=== PATIENT | female | born 1950 | race Caucasian/White ===

== ENCOUNTER 2023-11-07 23:40 | Observation (INO) | payer MEDICARE, OTHER ==
[2023-11-08 00:10] LABS: INR 1.1 (0.9-1.1)
[2023-11-08 00:14] LABS: BASOPHILS ABSOLUTE AUTO 0.03 K/uL (0.00-0.20); BASOPHILS PERCENT AUTO 0.4 % (0.0-2.0); EOSINOPHILS ABSOLUTE AUTO 0.21 K/uL (0.00-0.50); EOSINOPHILS PERCENT AUTO 2.6 % (0.0-5.0); HEMATOCRIT 35.6 % (34.0-46.0); HEMOGLOBIN 12.2 g/dL (11.7-15.5); LYMPHOCYTES ABSOLUTE AUTO 1.75 K/uL (0.50-3.50); MEAN CORPUSCULAR HGB CONC 34.3 g/dL (31.7-36.0); MEAN CORPUSCULAR VOLUME 90.4 fL (84.0-98.0); MONOCYTES ABSOLUTE AUTO 0.64 K/uL (0.00-1.00); MONOCYTES PERCENT AUTO 8.1 % (2.0-14.0); NEUTROPHILS ABSOLUTE AUTO 5.31 K/uL (1.40-7.00); NEUTROPHILS PERCENT AUTO 66.9 % (45.0-80.0); PLATELET COUNT,PLT 308 K/uL (150-350); RED BLOOD CELL COUNT 3.94 M/uL (3.77-5.09); RED CELL DISTRIBUTION WIDTH 12.5 % (11.2-14.1); WHITE BLOOD CELL COUNT,WBC 7.9 K/uL (4.0-10.2)
[2023-11-08 00:21] LABS: ALANINE AMINOTRANSFERASE,ALT 27 U/L (12-78); ALBUMIN 3.8 g/dL (3.4-5.0); ALKALINE PHOSPHATASE 67 IU/L (46-116); ANION GAP 13.1 meq/L (7-15); ASPARTATE AMNIOTRANSFERASE,AST 21 U/L (15-37); BILIRUBIN TOTAL 0.3 mg/dL (0.2-1.0); BLOOD UREA NITROGEN,BUN 14 mg/dL (7-18); CARBON DIOXIDE,CO2 24.9 mmol/L (21.0-32.0); CHLORIDE,CL 105 mmol/L (98-107); GLUCOSE RANDOM 114 mg/dL (70-99); POTASSIUM,K 3.9 mmol/L (3.5-5.1); PRO B-TYPE NATRIUR PEPT,BNPPRO 511 pg/mL (0-125); PROTEIN TOTAL,TP 7.6 g/dL (6.4-8.2); SODIUM,NA 143 mmol/L (136-145)
[2023-11-08 00:26] LABS: ESTIMATED GFR 39 mL/min (>=60)
[2023-11-08] MEDS ORDERED: Ondansetron 4 MG Tab.DIS PO PRN (01:11)
[2023-11-08] MEDS ORDERED: Take Home: Albuterol 6.7 GM Inhaler, 1 Inhaler Pack INH PRN (01:19)
[2023-11-08] MEDS: LORazepam 2 MG/ML SDV IV PRN (01:28)
[2023-11-08] MEDS: Sodium Chloride 0.9% 10 ML Syringe FLUSH PRN ×2 (01:29→09:11)
[2023-11-08] MEDS: Prochlorperazine 10 MG/2 ML SDV IV ONE (01:30)
[2023-11-08] MEDS: Furosemide 40 MG/4 ML VIAL IVPUSH ONE ×3 (02:03→16:52)
[2023-11-08] MEDS ORDERED: Albuterol 6.7 GM Inhaler INH PRN (02:36)
[2023-11-08 06:57] LABS: BASOPHILS ABSOLUTE AUTO 0.03 K/uL (0.00-0.20); BASOPHILS PERCENT AUTO 0.5 % (0.0-2.0); EOSINOPHILS ABSOLUTE AUTO 0.07 K/uL (0.00-0.50); EOSINOPHILS PERCENT AUTO 1.1 % (0.0-5.0); HEMOGLOBIN 11.4 g/dL (11.7-15.5); LYMPHOCYTES ABSOLUTE AUTO 1.92 K/uL (0.50-3.50); LYMPHOCYTES PERCENT AUTO 29.3 % (10.0-50.0); MEAN CORPUSCULAR HEMOGLOBIN 30.6 pg (28.2-33.3); MEAN CORPUSCULAR HGB CONC 33.5 g/dL (31.7-36.0); MEAN CORPUSCULAR VOLUME 91.2 fL (84.0-98.0); MONOCYTES ABSOLUTE AUTO 0.63 K/uL (0.00-1.00); MONOCYTES PERCENT AUTO 9.6 % (2.0-14.0); NEUTROPHILS ABSOLUTE AUTO 3.91 K/uL (1.40-7.00); NEUTROPHILS PERCENT AUTO 59.5 % (45.0-80.0); PLATELET COUNT,PLT 262 K/uL (150-350); RED BLOOD CELL COUNT 3.73 M/uL (3.77-5.09); RED CELL DISTRIBUTION WIDTH 12.5 % (11.2-14.1); WHITE BLOOD CELL COUNT,WBC 6.6 K/uL (4.0-10.2)
[2023-11-08 07:56] LABS: ANION GAP 9.5 meq/L (7-15); CALCIUM 9.6 mg/dL (8.5-10.1); CARBON DIOXIDE,CO2 27.5 mmol/L (21.0-32.0); CREATININE 1.12 mg/dL (0.51-1.17); EST CRCL DRUG DOSING (CG) 34.85 mL/min; POTASSIUM,K 4.3 mmol/L (3.5-5.1)
[2023-11-08] MEDS ORDERED: Non-Formulary Medication 1 Each (Diphenhydramine [Benadryl] 25 MG Tablet) PO SCH (08:00)
[2023-11-08] MEDS ORDERED: [UNRECOGNIZED DRUG - REMARK] PO SCH ×2 (08:00)
[2023-11-08] MEDS ORDERED: Non-Formulary Medication 1 Each (Levothyroxine Sodium [Synthroid] 125 MCG Tablet) PO SCH (08:00)
[2023-11-08] MEDS: Metoprolol Succinate 50 MG Tab.ER PO SCH (09:08)
[2023-11-08] MEDS: Vitamin B Complex Tab PO SCH (09:08)
[2023-11-08] MEDS: Citalopram 20 MG Tab PO SCH (09:08)
[2023-11-08] MEDS: amLODIPine 5 MG Tab PO SCH (09:09)
[2023-11-08] MEDS: Levothyroxine 25 MCG Tab PO SCH (09:09)
[2023-11-08] MEDS: diphenhydrAMINE 25 MG Cap PO SCH (09:10)
[2023-11-08] MEDS: Albuterol/Ipratropium 3.0-0.5 MG/3 ML Neb Soln NEB ONE (09:26)
[2023-11-08] MEDS: Levothyroxine 100 MCG Tab PO SCH (09:34)
[2023-11-08] MEDS: Prochlorperazine 10 MG/2 ML SDV IVPUSH ONE (10:03)
[2023-11-08] MEDS: Rivaroxaban 10 MG Tab PO SCH (12:24)
[2023-11-08] MEDS: Albuterol/Ipratropium 3.0-0.5 MG/3 ML Neb Soln ONE (12:25)
[2023-11-08] MEDS: Formoterol/Mometasone 200-5 MCG 8.8 GM Inhaler INH SCH (12:26)
[2023-11-08] MEDS ORDERED: Albuterol 0.083% 2.5 MG/3 ML Neb Soln INH PRN (16:30)
[2023-11-08 17:43] LABS: CREATININE 1.11 mg/dL (0.51-1.17); EST CRCL DRUG DOSING (CG) 35.17 mL/min
[2023-11-08] MEDS: Arformoterol 15 MCG/2 ML Neb Soln INH SCH (20:00)
[2023-11-08] MEDS: Budesonide 0.25 MG/2 ML Neb Susp INH SCH (20:00)
[2023-11-09 07:36] LABS: BASOPHILS ABSOLUTE AUTO 0.02 K/uL (0.00-0.20); BASOPHILS PERCENT AUTO 0.4 % (0.0-2.0); EOSINOPHILS PERCENT AUTO 5.8 % (0.0-5.0); HEMATOCRIT 35.6 % (34.0-46.0); HEMOGLOBIN 11.8 g/dL (11.7-15.5); LYMPHOCYTES PERCENT AUTO 32.9 % (10.0-50.0); MEAN CORPUSCULAR HEMOGLOBIN 30.6 pg (28.2-33.3); MEAN CORPUSCULAR HGB CONC 33.1 g/dL (31.7-36.0); MEAN CORPUSCULAR VOLUME 92.5 fL (84.0-98.0); MONOCYTES ABSOLUTE AUTO 0.56 K/uL (0.00-1.00); MONOCYTES PERCENT AUTO 10.9 % (2.0-14.0); NEUTROPHILS ABSOLUTE AUTO 2.58 K/uL (1.40-7.00); PLATELET COUNT,PLT 252 K/uL (150-350); RED BLOOD CELL COUNT 3.85 M/uL (3.77-5.09); RED CELL DISTRIBUTION WIDTH 12.6 % (11.2-14.1); WHITE BLOOD CELL COUNT,WBC 5.2 K/uL (4.0-10.2)
[2023-11-09 08:10] LABS: ALBUMIN 3.4 g/dL (3.4-5.0); ANION GAP 7.4 meq/L (7-15); BILIRUBIN TOTAL 0.7 mg/dL (0.2-1.0); CALCIUM 9.6 mg/dL (8.5-10.1); CARBON DIOXIDE,CO2 30.6 mmol/L (21.0-32.0); CREATININE 1.01 mg/dL (0.51-1.17); EST CRCL DRUG DOSING (CG) 38.65 mL/min; POTASSIUM,K 4.1 mmol/L (3.5-5.1); PROTEIN TOTAL,TP 7.2 g/dL (6.4-8.2)
[2023-11-09] MEDS: Lisinopril 20 MG Tab PO SCH (08:54)
== END 2023-11-09 12:30 | disposition home or self-care (01) ==
LOC: LL.ED 23:40 → LL.MS 11-08 01:00 → UNDOADMOB 11-08 01:00
PROVIDERS: ADMIT Physician Assistant; ATTEND Physician Assistant
DX: N17.9 Acute kidney failure, unspecified (principal); I50.9 Heart failure, unspecified; F41.9 Anxiety disorder, unspecified; F32.A Depression, unspecified; Z79.899 Other long term (current) drug therapy
CPT/HCPCS: 36415; 71045; 80048; 80053; 82565; 83880; 84484; 85025; 85610; 93005; 94640; 99285; A9270-GY; J0780; J1940; J2060; J3490; J7620-GY

== ENCOUNTER 2024-05-03 05:15 | Emergency (ER) | payer MEDICARE, OTHER ==
[2024-05-03] MEDS: Ondansetron 4 MG/2 ML SDV IVPUSH ONE ×2 (05:33→07:25)
[2024-05-03] MEDS: Morphine 2 MG/ML SYRINGE IVPUSH ONE ×2 (05:33→05:44)
[2024-05-03 05:47] LABS: BASOPHILS ABSOLUTE AUTO 0.01 K/uL (0.00-0.20); BASOPHILS PERCENT AUTO 0.2 % (0.0-2.0); EOSINOPHILS ABSOLUTE AUTO 0.06 K/uL (0.00-0.50); EOSINOPHILS PERCENT AUTO 0.9 % (0.0-5.0); HEMATOCRIT 36.8 % (34.0-46.0); HEMOGLOBIN 12.8 g/dL (11.7-15.5); IMMATURE GRAN ABSOLUTE AUTO 0.01 10^3/uL (0.00-0.50); IMMATURE GRAN PERCENT AUTO 0.2 % (0.0-5.0); LYMPHOCYTES ABSOLUTE AUTO 1.33 K/uL (0.50-3.50); LYMPHOCYTES PERCENT AUTO 20.4 % (10.0-50.0); MEAN CORPUSCULAR HEMOGLOBIN 31.3 pg (28.2-33.3); MEAN CORPUSCULAR HGB CONC 34.8 g/dL (31.7-36.0); MONOCYTES ABSOLUTE AUTO 0.44 K/uL (0.00-1.00); MONOCYTES PERCENT AUTO 6.8 % (2.0-14.0); NEUTROPHILS ABSOLUTE AUTO 4.66 K/uL (1.40-7.00); NEUTROPHILS PERCENT AUTO 71.5 % (45.0-80.0); PLATELET COUNT,PLT 223 K/uL (150-350); RED BLOOD CELL COUNT 4.09 M/uL (3.77-5.09); RED CELL DISTRIBUTION WIDTH 12.1 % (11.2-14.1); WHITE BLOOD CELL COUNT,WBC 6.5 K/uL (4.0-10.2)
[2024-05-03] MEDS: Promethazine 25 MG/ML SDV IM ONE ×2 (06:06→12:34)
[2024-05-03 06:17] LABS: ALANINE AMINOTRANSFERASE,ALT 29 U/L (12-78); ALBUMIN 3.7 g/dL (3.4-5.0); ALKALINE PHOSPHATASE 78 IU/L (46-116); ANION GAP 14.1 meq/L (7-15); ASPARTATE AMNIOTRANSFERASE,AST 25 U/L (15-37); BILIRUBIN TOTAL 0.6 mg/dL (0.2-1.0); BLOOD UREA NITROGEN,BUN 15 mg/dL (7-18); CALCIUM 10.3 mg/dL (8.5-10.1); CARBON DIOXIDE,CO2 22.9 mmol/L (21.0-32.0); CHLORIDE,CL 106 mmol/L (98-107); ESTIMATED GFR 47 mL/min (>=60); GLUCOSE RANDOM 139 mg/dL (70-99); POTASSIUM,K 3.9 mmol/L (3.5-5.1); PROTEIN TOTAL,TP 7.9 g/dL (6.4-8.2); SODIUM,NA 143 mmol/L (136-145)
[2024-05-03] MEDS: Promethazine 12.5 MG in Sodium Chloride 0.9% 100 ML IV ONE (07:01)
[2024-05-03] MEDS: Sodium Chloride 0.9% 1,000 ML IV SCH (07:06)
[2024-05-03] MEDS: Tamsulosin 0.4 MG Cap.ER PO ONE (07:06)
[2024-05-03] MEDS: HYDROmorphone 0.5 MG/0.5 ML Syringe IVPUSH ONE ×3 (07:25→12:35)
[2024-05-03] MEDS: Sodium Chloride 0.9% 10 ML Syringe FLUSH PRN (07:26)
[2024-05-03] MEDS: Levofloxacin/Dextrose 5%-Water 500 MG in Premix Bag 1 BAG IV ONE (10:37)
[2024-05-03] MEDS: Sodium Chloride 0.9% 1,000 ML IV ONE (12:29)
[2024-05-03] MEDS: Ketorolac 15 MG/ML SDV IVPUSH ONE (12:35)
== END 2024-05-03 12:54 ==
LOC: LL.ED 05:15
DX: N23 Unspecified renal colic (principal); J45.909 Unspecified asthma, uncomplicated; Z79.899 Other long term (current) drug therapy; Z88.2 Allergy status to sulfonamides; Z88.8 Allergy status to other drugs, medicaments and biological substances; Z88.0 Allergy status to penicillin; Z88.5 Allergy status to narcotic agent; Z88.1 Allergy status to other antibiotic agents; Z91.041 Radiographic dye allergy status
CPT/HCPCS: 36415; 74176; 80053; 83605; 85025; 96361; 96365; 96372; 96375; 96376; 99284; 99285; A9270; J1171; J1885; J1956; J2270; J2405; J2550; J7030; J3490